=== PATIENT | male | born 1940 | race Caucasian/White ===

== ENCOUNTER 2019-08-30 11:58 | Inpatient (IN) | payer MEDICARE, OTHER ==
[~2019-08-30] VITALS: Ht 177.8 cm; Wt 93.0 kg
--- NOTE | 2019-08-30 12:16 | NUR ---
[id number], from home, rapid heart rate since friday, denies chest pain HR120 on scene, BS 128. VERY PLEASANT, NO ACUTE DISTRESS NOTED. SOME SOB AND WEAKNESS, DENIES DIZZINESS, N/V. SKIN WARM, DRY, INTACT. AOX4, AMB, TACHYCARDIC. NO OTHER MEDICAL COMPLAINTS AT THIS TIME. ON MONITOR AND READY FOR EVAL.
[2019-08-30] MEDS ORDERED: DILTIAZEM HCL 50 MG IV ONE (12:22)
[2019-08-30] MEDS ORDERED: IV NS 0.9% 1,000 ML BAG IV ONE ×2 (12:30→13:00)
[2019-08-30] MEDS ORDERED: DILTIAZEM HCL 50 MG IV IV ONE (12:30)
[2019-08-30 12:32] LABS: BASOPHILS # (AUTO) 0.1 /CMM (0.0-0.2); BASOPHILS % (AUTO) 0.4 % (0.0-2.0); HEMATOCRIT 51 % (39-51); HEMOGLOBIN 17.2 g/dL (13.5-17.5); LYMPHOCYTES # (AUTO) 0.8 /CMM (0.8-4.8); LYMPHOCYTES % (AUTO) 2.6 % (20.0-44.0); MEAN CORPUSCULAR HGB CONC 34 g/dl (31.0-36.0); MEAN CORPUSCULAR VOLUME 98 fL (80-96); MONOCYTES # (AUTO) 2.7 /CMM (0.1-1.30); MONOCYTES % (AUTO) 8.4 % (2.0-12.0); NEUTROPHILS # (AUTO) 28.8 /CMM (1.8-8.9); NEUTROPHILS % (AUTO) 88.6 % (43.0-81.0); PLATELET COUNT (AUTO) 182 /CMM (150-450); RED BLOOD CELL COUNT(AUTO) 5.21 MIL/uL (4.5-6.0)
[2019-08-30 12:34] LABS: WHITE BLOOD COUNT (AUTO) 32.5 K/uL (4.3-11.0)
[2019-08-30 12:40] LABS: CALCIUM, SERUM 11.1 mg/dL (8.5-10.1); CARBON DIOXIDE 25 mmol/L (21-32); CHLORIDE 99 mmol/L (98-107); CREATININE 1.7 mg/dL (0.6-1.3); GLUCOSE 131 mg/dL (74-106); POTASSIUM 4.7 mmol/L (3.5-5.1); SODIUM SERUM 134 mmol/L (136-145); UREA NITROGEN, BLOOD 32 mg/dL (7-18)
[2019-08-30 12:46] LABS: ALANINE AMINOTRANSFERASE 15 U/L (12-78); ALBUMIN 2.6 g/dL (3.4-5.0); ALKALINE PHOSPHATASE 79 U/L (46-116); ASPARTATE AMINOTRANSFERASE 29 U/L (15-37); BILIRUBIN,DIRECT 0.3 mg/dL (0.0-0.2); BILIRUBIN,TOTAL 1.1 mg/dL (0.2-1.0); TOTAL PROTEIN, SERUM 7.4 g/dL (6.4-8.2)
--- NOTE | 2019-08-30 12:46 | NUR ---
CALLED NURSING SUP FOR TELE BED. WILL CALL BACK.
[2019-08-30] MEDS ORDERED: CEFTRIAXONE 1GM BAG (ER ONLY) 1 GM/50 ML PIGGYBACK IV ONE (13:00)
[2019-08-30] MEDS ORDERED: CEFTRIAXONE 1GM BAG (ER ONLY) 50 ML IV ONE (13:03)
[2019-08-30] MEDS ORDERED: CHOL1POW MC (13:19)
[2019-08-30] MEDS ORDERED: OMEP20TA5 PO (13:19)
[2019-08-30] MEDS ORDERED: WARF7.5T23 PO (13:19)
[2019-08-30] MEDS ORDERED: OMEG-166 PO (13:19)
[2019-08-30] MEDS ORDERED: SILD100T70 PO (13:19)
[2019-08-30] MEDS ORDERED: ERYT3.5O9 LEFTEYE (13:19)
[2019-08-30] MEDS ORDERED: MONT10TA22 PO (13:19)
[2019-08-30] MEDS ORDERED: PSYL0.525 PO (13:19)
[2019-08-30] MEDS ORDERED: TIOT18CA3 IH (13:19)
[2019-08-30] MEDS ORDERED: WARF-58 PO (13:19)
[2019-08-30] MEDS ORDERED: MULT-439 PO (13:19)
[2019-08-30] MEDS ORDERED: ALBU8.5H8 IH (13:19)
[2019-08-30] MEDS ORDERED: ATOR20TA PO (13:19)
[2019-08-30] MEDS ORDERED: ALLO300T2 PO (13:19)
[2019-08-30] MEDS ORDERED: LORA10TA7 PO (13:19)
[2019-08-30] MEDS ORDERED: LISI40TA4 PO (13:19)
--- NOTE | 2019-08-30 13:38 | NUR ---
BED ASSIGNMENT 112-1
--- NOTE | 2019-08-30 14:00 | NUR ---
CALLED TO GIVE REPORT, ACCEPTING NURSE ON BREAK
--- NOTE | 2019-08-30 14:18 | NUR ---
REPORT GIVEN FOR BED 101
--- NOTE | 2019-08-30 14:29 | NUR ---
PT [facility]
[2019-08-30 14:30] VITALS: BP 104/57
--- NOTE | 2019-08-30 15:26 | NUR ---
RN ADMITTING NOTE: PATIENT IS A 78 YEAR OLD MALE ADMITTED TO TELE FROM THE ER, PREVIOUSLY FROM HOME. PATIENT STATED THAT ON 08/28/2019, HE FELT HIS HEART RACING AND COULDN'T SLEEP. PATIENT IS ALERT X4, VERBAL, AMBULATORY WITH ASSIST. PATIENT IS ON RA, LUNGS CLEAR ON AUSCULTATION. NO SOB OR RESPIRATORY DISTRESS NOTED. NO C/O CHEST PAIN. PATIENT ON TELE MONITOR, UNCONTROLLED AFIB NOTED. IV SITE AT [facility] WITH 290G, PATENT, C/D/I. INVENTORY COMPLETE. MD NOTIFIED OF ADMISSION. CONTINENT, USES URINAL/ BATHROOM. SKIN INTACT. SAFETY MEASURES IMPLEMENTED. BED IN LOWEST POSITION, LOCKED, SIDE RAILS UP X2, CALL LIGHT WITHIN REACH.
[2019-08-30 16:00] VITALS: BP 100/68
[2019-08-30] MEDS ORDERED: ONDANSETRON HCL/PF 4 MG/2 ML VIAL IVP PRN (16:00)
[2019-08-30] MEDS ORDERED: Z GUARD REMEDY 2 OZ OINT TP PRN (16:00)
[2019-08-30] MEDS ORDERED: MAGNESIUM HYDROXIDE 30 ML UDC PO PRN (16:00)
[2019-08-30] MEDS ORDERED: ACETAMINOPHEN 325 MG TABLET PO PRN (16:00)
[2019-08-30] MEDS ORDERED: MAG HYDROX/AL HYDROX/SIMETH 30 ML UDC PO PRN (16:00)
[2019-08-30] MEDS ORDERED: HYDROCODONE/APAP 5/325MG 1 EACH TABLET PO PRN (16:00)
[2019-08-30] MEDS ORDERED: WARFARIN SODIUM 7.5 MG TABLET PO SCH (17:00)
[2019-08-30 17:04] LABS: LYMPHOCYTES % (MANUAL) 2 % (16-48); MONOCYTES % (MANUAL) 8 % (0-11.0); NEUTROPHILS % (MANUAL) 90 (42-76)
[2019-08-30] MEDS: IV NS 0.9% 1,000 ML IV PRN (17:29)
[2019-08-30] MEDS ORDERED: WARFARIN SODIUM 2.5 MG TABLET PO SCH ×2 (17:55→18:16)
[2019-08-30 18:47] LABS: APPEARANCE,URINE CLEAR (CLEAR); BILIRUBIN,URINE NEGATIVE (NEGATIVE); BLOOD, URINE NEGATIVE Ery/uL (NEGATIVE); COLOR,URINE YELLOW (YELLOW); KETONES,URINE NEGATIVE (NEGATIVE); LEUKOCYTE ESTERASE ,URINE NEGATIVE (NEGATIVE); NITRITE, URINE NEGATIVE (NEGATIVE); PH,URINE 5.5 (5.0-8.0); PROTEIN,URINE TRACE mg/dl (NEGATIVE); UGLUCOSE NEGATIVE (NEGATIVE); UROBILINOGEN,URINE 0.2 EU/dL (0.2)
[2019-08-30 18:54] LABS: RBC,URINE 0-2 /HPF (0-2); WBC,URINE 0-2 /HPF (0-3)
[2019-08-30 18:55] LABS: BACTERIA,URINE Few /HPF (None Seen); EOSINOPHIL,URINE None Seen; HYALINE CASTS, URINE Moderate /LPF (None Seen); SQUAMOUS EPITHELIAL CELL,UR Few /HPF (None Seen)
[2019-08-30] MEDS ORDERED: AMIODARONE 900 MG in IV D5W 482 ML IV PRN (19:00)
[2019-08-30] MEDS ORDERED: AMIODARONE 150 MG in IV D5W 100 ML IV ONE (19:00)
[2019-08-30] MEDS ORDERED: ALBUTEROL FS 2.5 MG/0.5 ML VIAL.NEB NEB PRN (19:30)
[2019-08-30] MEDS: IPRATROPIUM NEB FS 0.5 MG/2.5 ML AMPUL.NEB NEB SCH (19:38)
--- NOTE | 2019-08-30 19:42 | NUR ---
RN CLOSING NOTES PATIENT IS RESTING IN BED COMFORTABLY AT THIS TIME. HE IS ELEVATED, RECEIVED ORDERS FOR AMIODARONE BOLUS FOLLOWED BY DRIP. PT NEEDS HAVE BEEN MET, VITAL SIGNS ARE STABLE, NO ACUTE CHANGES OCCURRED THROUGHOUT THE SHIFT. SAFETY MEASURES HAVE BEEN IMPLEMENTED, CALL LIGHT IS WITHIN REACH, BED IS IN LOWEST AND LOCKED POSITION, SIDE RAILS UP X2, PT HAS BEEN ENDORSED TO NIGHTSHIFT RN FOR CONTINUITY OF CARE.
--- NOTE | 2019-08-30 19:50 | NUR ---
RN NOTES RECEIVED PATIENT AWAKE ALERT ORIENTED X4, VERBALLY RESPONSIVE. NO ACUTE RESPIRATORY DISTRESS ON ROOM AIR SATURATION 94%. AFEBRILE. STARTED AMIODARONE BOLUS AND AMIODARONE DRIP PROTOCOL ORDERED DUE TO AFIB W/RVR PER AM SHIFT. HR 114 AT THIS TIME. DENIES CHEST PAIN OR NAUSEA VOMITING. USED URINAL AND ABLE TO AMBULATE IN THE BATHROOM . REMINDED PATIENT TO PRESS CALL LIGHT FOR ASSISTANCE EVEN IF HE FEELS SHE CAN DO IT ON HER OWN. VERBALIZED UNDERSTANDING OF SAFETY. IV SITE ON LAC G 20 INTACT AND PATENT WTIH NS @ 125 ML/HR. AMIODARONE DRIP STARTED ORDERED. KEPT BED LOCKED AND IN LOWEST POSSIBLE POSITION. KEPT PT CLEAN AND DRY. WILL CONTINUE TO MONITOR.
[2019-08-30 20:00] VITALS: BP 120/67
[2019-08-30] MEDS: ATORVASTATIN 10 MG TABLET PO SCH (21:25)
[2019-08-31] VITALS (8 sets, daily range): BP systolic 109–133; BP diastolic 53–75
[2019-08-31] MEDS: IV NS 0.9% 1,000 ML IV PRN ×3 (02:00→16:52)
--- NOTE | 2019-08-31 02:00 | NUR ---
RN NOTES AMIODARONE DRIP CHANGE RATE TO 0.5 MCG/MIN.
[2019-08-31] MEDS: IPRATROPIUM NEB FS 0.5 MG/2.5 ML AMPUL.NEB NEB SCH ×4 (02:07→19:28)
[2019-08-31 06:26] LABS: BASOPHILS % (AUTO) 0.1 % (0.0-2.0); HEMATOCRIT 46 % (39-51); HEMOGLOBIN 15.6 g/dL (13.5-17.5); LYMPHOCYTES # (AUTO) 0.9 /CMM (0.8-4.8); LYMPHOCYTES % (AUTO) 3.1 % (20.0-44.0); MEAN CORPUSCULAR HGB CONC 34 g/dl (31.0-36.0); MEAN CORPUSCULAR VOLUME 98 fL (80-96); MONOCYTES # (AUTO) 2.2 /CMM (0.1-1.30); MONOCYTES % (AUTO) 7.5 % (2.0-12.0); NEUTROPHILS # (AUTO) 25.4 /CMM (1.8-8.9); NEUTROPHILS % (AUTO) 89.3 % (43.0-81.0); PLATELET COUNT (AUTO) 133 /CMM (150-450); RED BLOOD CELL COUNT(AUTO) 4.67 MIL/uL (4.5-6.0); WHITE BLOOD COUNT (AUTO) 28.5 K/uL (4.3-11.0)
--- NOTE | 2019-08-31 07:00 | NUR ---
RN NOTES PATIENT RESTED ON BED HAVING A HARD TIME SLEEPING AT NIGHT. WITH O2 2LPM VIA NC TOLERATED WELL. DENIES CHEST PAIN. AFEBRILE. VSS REMAINED AFIB UNCONTROLLED. SATURATION >92%. CONTINUE WITH AMIODARONE DRIP @ 0.5 MCG/MIN. IV SITE REMAINED INTACT AND PATENT. NO SIGNIFICANT CHANGES THROUGHOUT THE SHIFT. KEPT PT CLEAN AND DRY. ALL DUE MEDICINE ADMINISTERED ORDERED. ENDORSED CONTINUITY OF CARE TO AM NURSE.
[2019-08-31 07:08] LABS: CHOLESTEROL 87 mg/dL (<200); CREATINE KINASE, TOTAL 124 U/L (39-308); HDL CHOLESTEROL 25 mg/dL (40-60); LDL 41 mg/dL (0-99); THYROID STIMULATING HORMONE 0.351 uIU/mL (0.358-3.74); TRIGLYCERIDES 106 mg/dL (30-150)
[2019-08-31 07:09] LABS: ALANINE AMINOTRANSFERASE 17 U/L (12-78); ALBUMIN 2.1 g/dL (3.4-5.0); ALKALINE PHOSPHATASE 75 U/L (46-116); ASPARTATE AMINOTRANSFERASE 26 U/L (15-37); B-TYPE NATRIURETIC PEPTIDE 1158 PG/ML (0-125); BILIRUBIN,TOTAL 0.9 mg/dL (0.2-1.0); CARBON DIOXIDE 25 mmol/L (21-32); CHLORIDE 100 mmol/L (98-107); CREATININE 1.2 mg/dL (0.6-1.3); GLUCOSE 118 mg/dL (74-106); PHOSPHORUS 2.9 mg/dL (2.5-4.9); POTASSIUM 3.9 mmol/L (3.5-5.1); SODIUM SERUM 135 mmol/L (136-145); TOTAL PROTEIN, SERUM 6.4 g/dL (6.4-8.2); UREA NITROGEN, BLOOD 33 mg/dL (7-18)
--- NOTE | 2019-08-31 07:10 | NUR ---
VALERI RN OPENING NOTES RECEIVED REPORT FROM PM NURSE.PATIENT IN CHAIR.AWAKE ALERT ORIENTED X4. VERBALLY RESPONSIVE. NO SOB NO DISTRESS NOTED.ON O2 2L VIA NASAL CANULA. ON AMIODARONE DRIP ORDERED .ON TELE MONITOR AFIB W/RVR HR 80'S TO 110 AT THIS TIME. DENIES CHEST PAIN. URINAL AT BEDSIDE AND ABLE TO AMBULATE TO THE BATHROOM . REMINDED PATIENT TO PRESS CALL LIGHT FOR ASSISTANCE EVEN IF HE FEELS HE CAN DO IT ON HIS OWN. VERBALIZED UNDERSTANDING OF SAFETY. IV SITE ON LAC G 20 INTACT AND PATENT WITH NS @ 125 ML/HR. BED IS LOCKED AND IN LOWEST POSITION. CALL LIGHT IN REACH.WILL CONTINUE TO MONITOR.
[2019-08-31] MEDS: MONTELUKAST SODIUM (10MG) 10 MG TABLET PO SCH (08:14)
[2019-08-31] MEDS: LISINOPRIL (20MG) 20 MG TABLET PO SCH (08:14)
[2019-08-31] MEDS: ALLOPURINOL 100 MG TABLET PO SCH (08:14)
[2019-08-31] MEDS: MULTIVITAMINS,THERAGRAN 1 UDTAB TABLET PO SCH (08:14)
[2019-08-31] MEDS ORDERED: TIOTROPIUM BROMIDE 6 CAP/BOX CAP.W.DEV IH SCH (09:00)
--- NOTE | 2019-08-31 11:17 | NUR ---
AMPOULE WASHING MACHINE OPERATOR NOTE SEEN BY ARIEL.GOT NEW ORDERS.D/C AMIODARONE INFUSION.GOT NEW ORDER FOR HIDA SCAN.TASHI FROM NUCLEAR MEDICINE TALKED TO THE PATIENT AND EXPLAINED PROCEDURE.PATIENT VERBALIZED UNDERSTANDING.SIGNED CONSENT,NPO.WILL CONTINUE TO MONITOR.
[2019-08-31] MEDS: METOPROLOL TARTRATE 50 MG TABLET PO SCH ×2 (11:26→18:01)
--- NOTE | 2019-08-31 11:59 | NUR ---
INSTRUMENT SHOP SUPERVISOR NOTE SEEN BY .UPDATED ABOUT PATIENT CONDITION WITH LABS.WITH BC RESULT GRAM POSITIVE COCCI.WILL WAIT FOR 2ND BLOOD CULTURE TOO.GOT NEW ORDER FOR ARTIFICIAL TEARS PRN FOR EYE DRYNESS.AWAITING FOR HIDA SCAN.WILL CONTINUE TO MONITOR.
--- NOTE | 2019-08-31 13:00 | NUR ---
REAL ESTATE CLOSING COORDINATOR NOTE PATIENT PICKED UP FOR HIDA SCAN IN STABLE CONDITION WITH TASHI FROM NUCLEAR MEDICINE.NO SOB NO DISTRESS NOTED.
--- NOTE | 2019-08-31 14:41 | NUR ---
TICKET AGENT NOTER PATIENT BACK FROM HIDA SCAN.PATIENT IN BED.AXOX4.NPO.AWAITING ANOTHER SCAN @1700.WILL CONTINUE TO MONITOR.
[2019-08-31] MEDS: CEFTRIAXONE 1 G in IV D5W 50 ML IV SCH (14:51)
[2019-08-31] MEDS ORDERED: WARFARIN SODIUM 5 MG TABLET PO SCH (17:00)
--- NOTE | 2019-08-31 17:34 | NUR ---
MS GRAPHIC ARTS INSTRUCTOR NOTE PATIENT D/C HOME WITH IN STABLE CONDITION.AXOX4.NO SOB NO DISTRESS NOTED.SIGNED ALL DISCHARGE PAPER WORK .VERBALIZED UNDERSTANDING OF DISCHARGE INSTRUCTIONS AND NEW PRESCRIPTION.TO F/U WITH IN 1 WEEK.TOOK ALL BELONGINGS.IV REMOVED PRESSURE DRESSING APPLIED.TOOK ALL DISCHARGE PAPER WORK AND NEW PRESCRIPTION.LEFT IN PRIVATE CAR WITH DARIN VILLAGRAN IN PRIVATE CAR.WATERPROOF COATING MACHINE TENDER WHEELED PATIENT OUT FROM UNIT TO CAR. Addendum: 08/31/19 at 1804 by BILL BURTON RN ERROR/WRONG ENTRY
--- NOTE | 2019-08-31 18:02 | NUR ---
BUILDING GUARD DEPUTY SHERIFF NOTE PATIENT'S INR IS 3.50. MADE AWARE.HOLD DOSE TODAY AND RECHECK INR TOMORROW.WILL CONTINUE TO MONITOR.PATIENT MADE AWARE.BACK FROM SECOND HIDA SCAN TEST.
[2019-08-31] MEDS: POLYVINYL ALCOHOL 15 ML BOTTLE EACHEYE PRN (18:52)
--- NOTE | 2019-08-31 19:28 | NUR ---
CHRISTIAN SCIENCE NURSE NOTE RESULT OF HIDA CAN RELAYED TO POLICY ISSUE CLERK ZENA.KEEP PATIENT NPO.CHANGE IVF TO D5 1/2 NS@75ML/HR.SURGICAL CONSULT WITH .ENDORSED TO PM NURSE FOR MADIE.
[2019-08-31] MEDS: ATORVASTATIN 10 MG TABLET PO SCH (21:34)
[2019-08-31] MEDS: IV D5/0.45 NACL 1,000 ML IV PRN (22:47)
[2019-09-01] VITALS: BP 107/73
[2019-09-01] MEDS: METOPROLOL TARTRATE 50 MG TABLET PO SCH ×4 (00:50→17:57)
[2019-09-01] MEDS: IPRATROPIUM NEB FS 0.5 MG/2.5 ML AMPUL.NEB NEB SCH ×4 (01:02→20:04)
--- NOTE | 2019-09-01 01:04 | NUR ---
RT NOTE PT REFUSED TX. NO SOB NOTED. WILL CONTINUE TO MONITOR
[2019-09-01] MEDS: ZOLPIDEM TARTRATE 5 MG TABLET PO PRN (01:11)
[2019-09-01 04:00] VITALS: BP_SYST 107; BP_SYST 132; BP_DIAS 73; BP_DIAS 75
[2019-09-01 07:13] LABS: BASOPHILS % (AUTO) 0.1 % (0.0-2.0); EOSINOPHILS % (AUTO) 0.1 % (0.0-6.0); HEMATOCRIT 44 % (39-51); HEMOGLOBIN 14.5 g/dL (13.5-17.5); MEAN CORPUSCULAR HGB CONC 33 g/dl (31.0-36.0); MEAN CORPUSCULAR VOLUME 99 fL (80-96); MONOCYTES # (AUTO) 2.6 /CMM (0.1-1.30); MONOCYTES % (AUTO) 10.4 % (2.0-12.0); NEUTROPHILS # (AUTO) 21.5 /CMM (1.8-8.9); NEUTROPHILS % (AUTO) 85.4 % (43.0-81.0); PLATELET COUNT (AUTO) 125 /CMM (150-450); RED BLOOD CELL COUNT(AUTO) 4.46 MIL/uL (4.5-6.0); WHITE BLOOD COUNT (AUTO) 25.2 K/uL (4.3-11.0)
[2019-09-01 07:28] LABS: ALBUMIN 2.1 g/dL (3.4-5.0); BILIRUBIN,TOTAL 0.6 mg/dL (0.2-1.0); CALCIUM, SERUM 9.8 mg/dL (8.5-10.1); CREATININE 1.1 mg/dL (0.6-1.3); MAGNESIUM 2.1 mg/dL (1.8-2.4); PHOSPHORUS 2.3 mg/dL (2.5-4.9); POTASSIUM 4.2 mmol/L (3.5-5.1); TOTAL PROTEIN, SERUM 6.3 g/dL (6.4-8.2)
--- NOTE | 2019-09-01 07:30 | NUR ---
RN NOTES RECEIVED PATIENT PACING AROUND THE ROOM, DRESSSED WITH OWN CLOTHES. ALERT AND ORIENTEDX4. WITH AUDIBLE SHORTNESS OF BREATH BUT SATING WELL AT 98% ON ROOM AIR. . PATIENT AFIB ON THE MONITOR WITH HR ON THE 90S. IV SITE ON THE R WRIST IN PLACE, SALINE LOCKED. DISCUSSED PLAN OF CARE WITH THE PATIENT ESPECIALLY THAT HE'S BEEN PLACED ON NPO BUT " HAS NOT SPOKE TO THE DR" HE CLAIMED. PATIENT ENCOURAGE TO CALL FOR HELP/ ASSISTANCE. CALL LIGHT PLACED WITHIN REACH. BED IN LOW AND LOCKED POSITION. WILL CONTINUE TO MONITOR PATIENT ACCORDINGLY Addendum: 09/01/19 at 1845 by IGGY RODRIGUEZ RN PATIENT REFUSED IVF AT THIS TIME
[2019-09-01 08:00] VITALS: BP 125/74
--- NOTE | 2019-09-01 08:00 | NUR ---
RN NOTES INFORMED DR. CASTRO THAT PATIENT IS REQUESTING TO SEE HIM TO TALK REGARDING THE PROPOSED PROCEDURE
[2019-09-01] MEDS: LISINOPRIL (20MG) 20 MG TABLET PO SCH (09:00)
[2019-09-01] MEDS: MULTIVITAMINS,THERAGRAN 1 UDTAB TABLET PO SCH (09:00)
[2019-09-01] MEDS: MONTELUKAST SODIUM (10MG) 10 MG TABLET PO SCH (09:00)
[2019-09-01] MEDS: ALLOPURINOL 100 MG TABLET PO SCH (09:00)
--- NOTE | 2019-09-01 10:50 | NUR ---
RN NOTES DR. CASTRO AT BEDSIDE ON DISCUSSION WITH THE PATIENT REGARDING PLANNED PROCEDURE. 1100: OBTAINED CONSENT FOR THE PROCEDURE FROM THE PATIENT
[2019-09-01 12:00] VITALS: BP 142/69
[2019-09-01] MEDS ORDERED: NEUTRA PHOS 1 POWD.PACKET PO ONE (12:30)
[2019-09-01] MEDS ORDERED: PHYTONADIONE INJ 10 MG/1 ML AMPUL SQ ONE (13:00)
[2019-09-01] MEDS: CEFTRIAXONE 1 G in IV D5W 50 ML IV SCH (14:57)
[2019-09-01 16:00] VITALS: BP 135/76
[2019-09-01 20:00] VITALS: BP 112/69
[2019-09-02] VITALS (7 sets, daily range): BP systolic 95–128; BP diastolic 47–75
[2019-09-02] MEDS: IPRATROPIUM NEB FS 0.5 MG/2.5 ML AMPUL.NEB NEB SCH ×4 (01:12→20:09)
[2019-09-02] MEDS: ZOLPIDEM TARTRATE 5 MG TABLET PO PRN ×2 (01:27→22:15)
--- NOTE | 2019-09-02 02:00 | NUR ---
RN NOTES PATIENT IS A/OX4 IN THE BED, STABLE,PATIENT REPORT GIVEN TO RN ADA DECORATING INSTRUCTOR.
--- NOTE | 2019-09-02 02:20 | NUR ---
TELE/RN NOTES: RECEIVED REPORT FROM GEGE MCMILLAN FOR CONTINUITY OF CARE. RECEIVED PATIENT IN STABLE CONDITION, SLEEPING IN BED CURRENTLY. IN NO DISTRESS. NO SOB NOTED. WILL CONTINUE MONITORING ACCORDINGLY.
[2019-09-02 04:33] LABS: BASOPHILS # (AUTO) 0.1 /CMM (0.0-0.2); BASOPHILS % (AUTO) 0.3 % (0.0-2.0); EOSINOPHILS % (AUTO) 0.3 % (0.0-6.0); HEMATOCRIT 43 % (39-51); HEMOGLOBIN 14.1 g/dL (13.5-17.5); LYMPHOCYTES # (AUTO) 1.3 /CMM (0.8-4.8); LYMPHOCYTES % (AUTO) 4.7 % (20.0-44.0); MEAN CORPUSCULAR HGB CONC 33 g/dl (31.0-36.0); MEAN CORPUSCULAR VOLUME 98 fL (80-96); MONOCYTES # (AUTO) 3.7 /CMM (0.1-1.30); MONOCYTES % (AUTO) 13.5 % (2.0-12.0); NEUTROPHILS % (AUTO) 81.2 % (43.0-81.0); PLATELET COUNT (AUTO) 125 /CMM (150-450); RED BLOOD CELL COUNT(AUTO) 4.33 MIL/uL (4.5-6.0); WHITE BLOOD COUNT (AUTO) 27.2 K/uL (4.3-11.0)
[2019-09-02 04:46] LABS: CALCIUM, SERUM 9.1 mg/dL (8.5-10.1); CREATININE 0.8 mg/dL (0.6-1.3); PHOSPHORUS 2.8 mg/dL (2.5-4.9)
[2019-09-02] MEDS: METOPROLOL TARTRATE 50 MG TABLET PO SCH ×4 (05:09→17:54)
--- NOTE | 2019-09-02 06:25 | NUR ---
TELE/RN CLOSING NOTES: PATIENT IS AWAKE, SITTING THE CHAIR. A/OX4. STABLE, VERBALLY RESPONSIVE AND ABLE TO MAKE NEEDS KNOWN. AMBULATORY WITH UNSTEADY GAIT. INFORMED PATIENT TO CALL FOR ASSISTANCE WHEN GETTING UP. NO SOB NOTED, NO S/S OF ACUTE DISTRESS NOTED. BREATHING EVEN AND UNLABORED. NO COMPLAINS OF PAIN AT THIS TIME. MAINTAIN NPO STATUS STARTING MIDNIGHT FOR LAP FRANKIE PROCEDURE IN THE MORNING. INR OF 2.[address] CASTRO ABOUT LEVEL. IV SITE IS IN THE R HAND #22G INTACT, PATENT AND FLUSHING WELL. ALL CONSENTS FOR PROCEDURE SIGNED, WELL THE PRE OP CHECKLIST. SAFETY MEASURES KEPT IN PLACE. CALL LIGHT WITHIN REACH WILL ENDORSE TO MORNING NURSE FOR MADIE.
--- NOTE | 2019-09-02 06:26 | NUR ---
TELE/RN CLOSING NOTES: PATIENT IS AWAKE, SITTING THE CHAIR. A/OX4. STABLE, VERBALLY RESPONSIVE AND ABLE TO MAKE NEEDS KNOWN. AMBULATORY WITH UNSTEADY GAIT. INFORMED PATIENT TO CALL FOR ASSISTANCE WHEN GETTING UP. NO SOB NOTED, NO S/S OF ACUTE DISTRESS NOTED. BREATHING EVEN AND UNLABORED. NO COMPLAINS OF PAIN AT THIS TIME. ON TELE MONITORING WITH READING OF A FIB CONTROLLED WITH HR ON THE 80S. MAINTAIN NPO STATUS STARTING MIDNIGHT FOR LAP FRANKIE PROCEDURE IN THE MORNING. INR OF 2.[address] CASTRO ABOUT LEVEL. IV SITE IS IN THE R HAND #22G INTACT, PATENT AND FLUSHING WELL. ALL CONSENTS FOR PROCEDURE SIGNED, WELL THE PRE OP CHECKLIST. SAFETY MEASURES KEPT IN PLACE. CALL LIGHT WITHIN REACH WILL ENDORSE TO MORNING NURSE FOR MADIE.
--- NOTE | 2019-09-02 06:40 | NUR ---
TELE/RN NOTES: CALLED DR. CASTRO REGARDING INR LEVEL OF 2.72. PER MD "CANCEL THE PROCEDURE AND WE'LL CONTINUE WHEN THE LEVELS ARE WITHIN NORMAL RANGE. PUT THE PATIENT ON CLEAR LIQUIDS, AND ORDER 10MG VITAMIN K SUB Q ONCE. REPEAT INR LEVELS AT 2PM." ORDERS NOTED AND CARRIED OUT. WILL ENDORSE TO DAY SHIFT FOR MADIE.
[2019-09-02] MEDS ORDERED: PHYTONADIONE INJ 10 MG/1 ML AMPUL SQ ONE (08:00)
[2019-09-02 08:09] LABS: *SPE A/G RATIO 0.8 (0.7-1.7); *SPE ALBUMIN 2.6 g/dL (2.9-4.4); *SPE ALPHA-1-GLOBULIN 0.5 g/dL (0.0-0.4); *SPE BETA GLOBULIN 0.9 g/dL (0.7-1.3); *SPE GLOBULIN, TOTAL 3.1 g/dL (2.2-3.9); *SPE M-SPIKE 0.1 g/dL (Not Observed); *SPEGAMMA GLOBULIN 0.6 g/dL (0.4-1.8)
[2019-09-02] MEDS: MONTELUKAST SODIUM (10MG) 10 MG TABLET PO SCH (08:48)
[2019-09-02] MEDS: MULTIVITAMINS,THERAGRAN 1 UDTAB TABLET PO SCH (08:48)
[2019-09-02] MEDS: ALLOPURINOL 100 MG TABLET PO SCH (08:48)
[2019-09-02] MEDS: LISINOPRIL (20MG) 20 MG TABLET PO SCH (09:00)
[2019-09-02] MEDS ORDERED: PIPERACILLIN /TAZOBACTAM 3.375 G in IV D5W 50 ML IV ONE (12:00)
[2019-09-02] MEDS: PIPERACILLIN /TAZOBACTAM 3.375 G in IV D5W 100 ML IV SCH (13:10)
--- NOTE | 2019-09-02 19:15 | NUR ---
RN OPENING NOTE RECEIVED PATIENT IN BED RESTING WITH HOB ELEVATED. A&O X4. ABLE TO MAKE NEEDS KNOWN. BREATHING EVEN AND NON LABORED. NO SOB NOTED. IN NO APPARENT DISTRESS NOTED AT THIS TIME. BED IS LOWERED TO LOW POSITION AND LOCKED FOR SAFETY. CALL LIGHT IS WITHIN REACH. WILL CONTINUE TO MONITOR.
[2019-09-03] VITALS (13 sets, daily range): BP systolic 104–139; BP diastolic 55–78
--- NOTE | 2019-09-03 00:41 | NUR ---
e learning manager: received report from sweetie leiva. pt sleeping, appears calm and comfortable. currently npo for sx in am. consent signed by pt. safety precautions for fall engaged, call light in reach, will continue monitoring pt.
--- NOTE | 2019-09-03 00:45 | NUR ---
RN NOTE PATIENT IS STABLE AT THIS TIME. NO SIGNIFICANT CHANGES NOTED. PATIENT IS NPO AFTER MIDNIGHT. ENDORSED TO GEGE RAMIREZ FOR CONTINUATION OF CARE.
--- NOTE | 2019-09-03 00:50 | NUR ---
RN NOTES: PER DR CASTRO'S NOTE DATED 09/02/2019, PT SUPPOSED TO BE FOR LAP FRANKIE YESTERDAY BUT [facility] CANCELLED DUE TO PT INR LEVEL. PER NOTE, HE CONSULTED RADIOLOGY DR BISHOP, PLAN FOR POSSIBLE CT GUIDED DRAIN IN THE GALL BLADDER, BUT NEEDING INR LEVEL TO BE THERAPEUTIC INR <1.5, OF RIGHT NOW, BASED ON SCHEDULE MASTERLIST FOR SURGERY, PT'S NAME WAS NOT WRITTEN/NO SCHED FOR SX, PER ULTRASOUND TECHNOL RECOMMENDATION TO KEEP NPO POSSIBLE LAP FRANKIE VS CT GUIDED IN AM.
--- NOTE | 2019-09-03 01:00 | NUR ---
RN NOTES: PT AWAKE, DISCUSSED POSSIBILITY OF SURGERY IN AM, AND THAT PT NEEDS TO BE KEPT NPO, PT AGREE, WATER PITCHER REMOVED. ACCORDING TO PT, LAST MEAL INTAKE WAS DINNER TIME, AND LAST FLUID/WATER INTAKE WAS BEFORE MIDNIGHT. PT REFUSED IVF, EDUCATION PROVIDED TO PT.
[2019-09-03] MEDS: IPRATROPIUM NEB FS 0.5 MG/2.5 ML AMPUL.NEB NEB SCH ×4 (01:38→19:27)
[2019-09-03] MEDS: PIPERACILLIN /TAZOBACTAM 3.375 G in IV D5W 100 ML IV SCH ×2 (04:40→17:05)
--- NOTE | 2019-09-03 05:44 | NUR ---
RN NOTES: PT'S WRISTWATCH, DENTURES, CELLPHONE, RAIL EQUIPMENT OPERATOR, WALLET PLACED ON ZIPLOCK WITH PT'S NAME/DIRECTOR OF PROVIDER RELATIONS IT. PT REFUSED KEEPING THOSE ON SAFE. PURSE TOGETHER WITH OTHER VALUABLES WERE KEPT IN BED SIDE DRAWER.
[2019-09-03] MEDS: METOPROLOL TARTRATE 50 MG TABLET PO SCH ×5 (06:00→23:45)
[2019-09-03 06:21] LABS: BASOPHILS # (AUTO) 0.1 /CMM (0.0-0.2); BASOPHILS % (AUTO) 0.2 % (0.0-2.0); EOSINOPHILS % (AUTO) 0.8 % (0.0-6.0); HEMATOCRIT 42 % (39-51); HEMOGLOBIN 13.6 g/dL (13.5-17.5); LYMPHOCYTES # (AUTO) 1.3 /CMM (0.8-4.8); LYMPHOCYTES % (AUTO) 5.1 % (20.0-44.0); MEAN CORPUSCULAR HGB CONC 33 g/dl (31.0-36.0); MEAN CORPUSCULAR VOLUME 98 fL (80-96); MONOCYTES # (AUTO) 3.6 /CMM (0.1-1.30); MONOCYTES % (AUTO) 13.8 % (2.0-12.0); NEUTROPHILS # (AUTO) 20.8 /CMM (1.8-8.9); NEUTROPHILS % (AUTO) 80.1 % (43.0-81.0); PLATELET COUNT (AUTO) 184 /CMM (150-450); RED BLOOD CELL COUNT(AUTO) 4.26 MIL/uL (4.5-6.0)
--- NOTE | 2019-09-03 06:30 | NUR ---
end of shift report: pt remains npo for possible sx today, lap bryce vs ct guided drain of gallbladder. am labs drawn. new iv access secured, left wrist g 20 currently infusing with zosyn iv atb extended infusion. no s/s of iv infiltration noted. lopressor held per clinical judgment due to pt's decreased blood pressure. consent for surgery signed by pt, checklist completed. pt remains a/o x3 on ra, stable, spo2 95%, denies any pain or discomfort. hourly rounding performed. needs attended. safety precautions for fall remains engaged, call light in reach, will endorse to day rn for continuity of care.
[2019-09-03 06:41] LABS: CALCIUM, SERUM 9.1 mg/dL (8.5-10.1); CREATININE 0.9 mg/dL (0.6-1.3); POTASSIUM 3.6 mmol/L (3.5-5.1)
[2019-09-03] MEDS: MULTIVITAMINS,THERAGRAN 1 UDTAB TABLET PO SCH (09:00)
[2019-09-03] MEDS: MONTELUKAST SODIUM (10MG) 10 MG TABLET PO SCH (09:00)
[2019-09-03] MEDS: LISINOPRIL (20MG) 20 MG TABLET PO SCH (09:00)
[2019-09-03] MEDS: ALLOPURINOL 100 MG TABLET PO SCH (09:00)
[2019-09-03] MEDS: IV D5/0.45 NACL 1,000 ML IV PRN (10:48)
--- NOTE | 2019-09-03 14:30 | NUR ---
ICU/RN/CT PT TRANSFER FROM MS UNIT TO CT SCAN FOR CT GUIDED DRAIN IN THE GALLBLADDER.PT IS AWAKE ,ALERT .PLACED ON MONITOR A-FIB HR 80-100 BPM.BP STABLE.SEE THE MODERATE SEDATION RECORD.AFEBRILE.ON 2L N/C ,SAT O2-100%. NO PAIN REPORTED AT THIS TIME.
[2019-09-03] MEDS ORDERED: FENTANYL PF 250MCG/5ML AMPUL IV ONE (15:00)
[2019-09-03] MEDS ORDERED: MIDAZOLAM HCL 5MG/ML VIAL 25 MG/5 ML VIAL IV ONE (15:00)
[2019-09-03] MEDS ORDERED: NALOXONE PREFILLED SYRINGE 2 MG/2 ML SYRINGE IV ONE (15:00)
[2019-09-03] MEDS ORDERED: IV NS 0.9% 250 ML IV ONE (15:05)
--- NOTE | 2019-09-03 16:05 | NUR ---
ICU/RN/CT FENTANYL 25 MCG IV PUSH GIVEN ORDERED.
--- NOTE | 2019-09-03 16:30 | NUR ---
ICU/RN/CT RIGHT SIDE GALLBLADDER DRAIN BACK PLACED BY .PT TRANSFERRED BACK TO THE ROOM 101 IN STABLE CONDITION.V/S STABLE AFEBRILE.PT TOLERATED PROCEDURE WELL ,NO S/S OF BLEEDING NOTED.REPORT GIVEN TO DIGNA/RN.
--- NOTE | 2019-09-03 17:00 | NUR ---
RN NOTE PT STABLE, VS STABLE, NO CO PAIN OR SOB. PT ASKING FOR FOOD. PER DR PHILIPPE WE CAN GIVE HIM CLEAR LIQUID DIET, AND TO HOLD COUMADIN TODAY. WILL FOLLOW THROUGH ORDERS AND WILL CONTINUE TO MONITOR.
--- NOTE | 2019-09-03 20:11 | NUR ---
MS/RN OPENING NOTE RECEIVED PATIENT A/O X4 YAKUT SPEAKER SITTING IN CHAIR CURRENTLY WITH NO SIGN OF ANY DISTRESS. PATIENT IS ON ROOM AIR CURRENTLY WITH NO SIGNS OF ANY SOB. PATIENT HAS AN IV ON LT WRIST WITH GAUG #20 PATENT WITH NO SIGN OF INFILTRATION CURRENTLY RUNNING MERREM. PATIENT AMBULATES WELL WITH NO SIGN OF IMBALANCE. PATIENT HAS A RT SIDE UPPER ABDOMENT DRAINAGE WITH NO SIGN OF ANY LEAKAGE. PATIENT DOES NOT COMPLAIN OF ANY PAIN AT THE MOMENT. PATIENT CONTINUES TO SIT IN CHAIR. ALL SAFETY PRECAUTIONS HAVE BEEN APPLIED. CALL LIGHT WITHIN REACH. WILL CONTINUE TO MONITOR PATIENT THROUGHOUT SHIFT.
--- NOTE | 2019-09-03 23:45 | NUR ---
MS/RN NOTE HELD SCHEDULED METROPOLOL AT 0000. PATIENT BP IS NOT WITHIN RANGE FOR ADMINISTRATION OF MEDICATION. BP IS 104/57 WITH A HR OF 85. PER MEDICATION PROTOCOL HOLD MEDICATION FOR SBP <105. WILL CONTINUE TO MONITOR PATIENT.
[2019-09-04] MEDS: PIPERACILLIN /TAZOBACTAM 3.375 G in IV D5W 100 ML IV SCH ×3 (00:15→17:22)
[2019-09-04] MEDS: IPRATROPIUM NEB FS 0.5 MG/2.5 ML AMPUL.NEB NEB SCH ×4 (01:30→19:43)
[2019-09-04 04:00] VITALS: BP 117/58
[2019-09-04] MEDS: METOPROLOL TARTRATE 50 MG TABLET PO SCH ×3 (05:59→17:22)
--- NOTE | 2019-09-04 05:59 | NUR ---
MS/RN NOTE HELD PATIENT SCHEDULED METROPOLOL AT 0600. PATIENT BP IS 103/64. PER MEDICATION PROTOCOL HOLD IF SBP IS <105. WILL CONTINUE TO MONITOR PATIENT.
--- NOTE | 2019-09-04 07:16 | NUR ---
MS/RN CLOSING PATIENT IN BED WITH NO SIGN OF ANY DISTRESS. PATIENT IS ON ROOM AIR WITH NO SIGN OF ANY SOB. PATIENT DOES NOT COMPLAIN OF ANY PAIN. DRAINAGE ON THE RIGHT UPPER ABDOMEN IS DRANING WELL. IV ACCESS ON THE LT WRIST #20 IS PATENT WITH NO SIGN OF ANY INFILTRATION. ALL NEEDS HAVE BEEN MET. ENDORSED PATIENT TO MORNING SHIFT NURSE FOR MADIE.
[2019-09-04 07:17] LABS: BASOPHILS # (AUTO) 0.1 /CMM (0.0-0.2); BASOPHILS % (AUTO) 0.2 % (0.0-2.0); EOSINOPHILS % (AUTO) 1.2 % (0.0-6.0); HEMATOCRIT 42 % (39-51); HEMOGLOBIN 13.8 g/dL (13.5-17.5); LYMPHOCYTES # (AUTO) 2.1 /CMM (0.8-4.8); LYMPHOCYTES % (AUTO) 9.9 % (20.0-44.0); MEAN CORPUSCULAR HGB CONC 33 g/dl (31.0-36.0); MEAN CORPUSCULAR VOLUME 98 fL (80-96); MONOCYTES % (AUTO) 14.3 % (2.0-12.0); NEUTROPHILS # (AUTO) 15.7 /CMM (1.8-8.9); NEUTROPHILS % (AUTO) 74.4 % (43.0-81.0); PLATELET COUNT (AUTO) 246 /CMM (150-450); RED BLOOD CELL COUNT(AUTO) 4.29 MIL/uL (4.5-6.0); WHITE BLOOD COUNT (AUTO) 21.2 K/uL (4.3-11.0)
--- NOTE | 2019-09-04 07:40 | NUR ---
MS RN OPENING NOTE PATIENT IN BED RESTING COMFORTABLY. PATIENT IN NO ACUTE DISTRESS. NO SOB NOTED. PATIENT BREATHING IS EVEN AND UNLABORED. RIGHT UPPER ABDOMEN DRAIN PATENT AND INTACT. SAFETY PRECAUTIONS IN PLACE. PATIENT BED IS LOCKED AND IN LOWEST POSITION. CALL LIGHT WITHIN REACH. WILL CONTINUE TO MONITOR.
[2019-09-04 07:45] LABS: CALCIUM, SERUM 9.1 mg/dL (8.5-10.1); CREATININE 0.8 mg/dL (0.6-1.3); POTASSIUM 3.7 mmol/L (3.5-5.1)
[2019-09-04 08:00] VITALS: BP 129/75
--- NOTE | 2019-09-04 08:48 | NUR ---
MS RN NOTE SEEN AND EVALUATED BY DR. PHILIPPE. PATIENT WAS ON COUMADIN WITH INR, PREVIOUSLY DISCONTINUED. PER MD KEEP MEDICATION DISCONTINUED AT THIS TIME.
[2019-09-04] MEDS: MULTIVITAMINS,THERAGRAN 1 UDTAB TABLET PO SCH (09:21)
[2019-09-04] MEDS: ALLOPURINOL 100 MG TABLET PO SCH (09:21)
[2019-09-04] MEDS: LISINOPRIL (20MG) 20 MG TABLET PO SCH (09:21)
[2019-09-04] MEDS: MONTELUKAST SODIUM (10MG) 10 MG TABLET PO SCH (09:21)
--- NOTE | 2019-09-04 09:45 | NUR ---
MS RN NOTE PER DR. PHILIPPE FOR INCENTIVE SPIROMETER AND KEEP AT BEDSIDE. EDUCATED PATIENT IMPORTANCE AND USE OF INCENTIVE SPIROMETER.
[2019-09-04 12:00] VITALS: BP 118/60
[2019-09-04 16:00] VITALS: BP 114/74
[2019-09-04 16:07] VITALS: BP 114/74
--- NOTE | 2019-09-04 16:25 | NUR ---
MS RN NOTE INR LAB RESULTED WNL TODAY. PER DR. PHILIPPE NO ORDER FOR COUMADIN AT THIS TIME.
--- NOTE | 2019-09-04 18:28 | NUR ---
MS RN CLOSING NOTE PATIENT IN BED RESTING COMFORTABLY. PATIENT IN NO ACUTE DISTRESS. NO SOB NOTED. PATIENT BREATHING IS EVEN AND UNLABORED. PATIENT NEEDS AND CONCERNS ADDRESSED. RIGHT UPPER ABDOMINAL DRAIN PATENT AND INTACT. PATIENT KEPT CLEAN, DRY, AND COMFORTABLE THROUGHOUT SHIFT. PATIENT IN NO PAIN AT THIS TIME. PATIENT IV PATENT AND INTACT. PATIENT BED IS LOCKED AND IN LOWEST POSITION. CALL LIGHT WITHIN REACH. WILL ENDORSE CARE TO PM SHIFT FOR MADIE.
--- NOTE | 2019-09-04 19:32 | NUR ---
MS/RN OPENING NOTES RECEIVED PATIENT IN BED, ALERT, ORIENTED X4, ABLE TO VERBALIZE NEEDS, SKIN WARM TO TOUCH, RESPIRATIONS EVEN AND UNLABORED, DISCUSSED PLAN OF CARE AND ON IV ANTIBIOTIC BEING INFUSED, USING URINAL AND REQUIRE SUPERVISION FOR SAFETY. BED LOCKED, CALL LIGHTS WITHIN REACH. WILL MONITOR. DENIES PAIN.
[2019-09-04 20:00] VITALS: BP 109/72
[2019-09-04] MEDS: POLYVINYL ALCOHOL 15 ML BOTTLE EACHEYE PRN (20:27)
[2019-09-05] VITALS: BP 104/66
[2019-09-05 00:32] VITALS: BP 104/66
[2019-09-05] MEDS: IPRATROPIUM NEB FS 0.5 MG/2.5 ML AMPUL.NEB NEB SCH ×4 (01:20→19:37)
[2019-09-05 04:00] VITALS: BP_SYST 103; BP_SYST 104; BP_DIAS 55; BP_DIAS 66
[2019-09-05] MEDS: METOPROLOL TARTRATE 50 MG TABLET PO SCH ×5 (05:36→23:29)
--- NOTE | 2019-09-05 06:25 | NUR ---
101-1MS/RN CLOSING NOTES PATIENT ABLE TO SLEEP DURING THE NIGHT. ALERT, ORIENTED X3, ATTENDED TO ALL NEEDS MONITORED FOR ANY CHANGES IN BLOOD PRESSURE. BED LOCKED, CALL LIGHTS WITHIN REACH. IV ANTIBIOTIC BEING INFUSED, WILL ENDORSE TO AM RN FOR MADIE.
--- NOTE | 2019-09-05 07:43 | NUR ---
RECEIVED BEDSIDE SBAR FROM PM RN - SAFETY PRECAUTIONS IN PLACE- VITALS STABLE - CONCERNS IN REGARDS TO DISCHARGE, MEDICATIONS AND ADVANCED DIET - WILL COTINUE TO MONITOR REPORT AND RECORD
[2019-09-05 08:00] VITALS: BP 110/72
[2019-09-05] MEDS: MULTIVITAMINS,THERAGRAN 1 UDTAB TABLET PO SCH (08:48)
[2019-09-05] MEDS: LISINOPRIL (20MG) 20 MG TABLET PO SCH (08:48)
[2019-09-05] MEDS: PIPERACILLIN /TAZOBACTAM 3.375 G in IV D5W 100 ML IV SCH ×4 (08:48→16:34)
[2019-09-05] MEDS: ALLOPURINOL 100 MG TABLET PO SCH (08:48)
[2019-09-05] MEDS: MONTELUKAST SODIUM (10MG) 10 MG TABLET PO SCH (11:51)
[2019-09-05] MEDS: ENOXAPARIN SODIUM 100 MG/ML DISP.SYRIN SQ SCH ×2 (11:53→20:38)
[2019-09-05 12:07] LABS: BASOPHILS # (AUTO) 0.1 /CMM (0.0-0.2); BASOPHILS % (AUTO) 0.7 % (0.0-2.0); EOSINOPHILS % (AUTO) 1.4 % (0.0-6.0); HEMATOCRIT 46 % (39-51); HEMOGLOBIN 15.2 g/dL (13.5-17.5); LYMPHOCYTES # (AUTO) 2.1 /CMM (0.8-4.8); LYMPHOCYTES % (AUTO) 11.3 % (20.0-44.0); MEAN CORPUSCULAR HGB CONC 33 g/dl (31.0-36.0); MEAN CORPUSCULAR VOLUME 99 fL (80-96); MONOCYTES # (AUTO) 2.5 /CMM (0.1-1.30); NEUTROPHILS # (AUTO) 13.2 /CMM (1.8-8.9); NEUTROPHILS % (AUTO) 72.6 % (43.0-81.0); PLATELET COUNT (AUTO) 305 /CMM (150-450); WHITE BLOOD COUNT (AUTO) 18.2 K/uL (4.3-11.0)
[2019-09-05 12:31] LABS: CALCIUM, SERUM 9.5 mg/dL (8.5-10.1); CARBON DIOXIDE 28 mmol/L (21-32); CHLORIDE 104 mmol/L (98-107); CREATININE 0.8 mg/dL (0.6-1.3); GLUCOSE 119 mg/dL (74-106); POTASSIUM 3.9 mmol/L (3.5-5.1); SODIUM SERUM 139 mmol/L (136-145); UREA NITROGEN, BLOOD 11 mg/dL (7-18)
[2019-09-05 13:09] LABS: BAND % (MANUAL) 2 % (0.0-5.0); EOSINOPHILS % (MANUAL) 1 % (0-4); LYMPHOCYTES % (MANUAL) 14 % (16-48); MONOCYTES % (MANUAL) 9 % (0-11.0); NEUTROPHILS % (MANUAL) 74 (42-76)
--- NOTE | 2019-09-05 15:14 | NUR ---
followed up surgery teacher resource. -NO DISCHARGE- d/t elevated wbc, drain, abx and id consult completion
--- NOTE | 2019-09-05 15:24 | NUR ---
patient and family member made aware of the discharge being placed on hold
[2019-09-05 16:00] VITALS: BP 109/75
--- NOTE | 2019-09-05 19:17 | NUR ---
care endorsed to pm rn - safety precautions in place- will continue to monitor report and record
--- NOTE | 2019-09-05 19:20 | NUR ---
MS RN OPENING NOTES RECEIVED PATIENT FROM MORNING SHIFT, ALERT AND ORIENTED X 3. VERBALLY RESPONSIVE AND ABLE TO FOLLOW DIRECTIONS. BREATHING REGULAR AND UNLABORED ON ROOM AIR. LEFT WRIST G20 IV LINE PATENT AND INTACT, FLUSHING WELL WITH NO BLEEDING OR S/S OF INFILTRATION NOTED. RIGHT UPPER ABDOMEN DRAIN INTACT WITH NO OUTPUT SEEN AT THIS TIME. BODY ASSESSMENT DONE, SKIN REMAINED INTACT CLEAN AND DRY. NO COMPLAINTS OF PAIN/DISCOMFORT REPORTED OF NOW. BED LOW AND LOCKED ON SEMI FOWLERS POSITION. CALL LIGHT IN REACH. WILL CONTINUE TO MONITOR.
[2019-09-05 20:00] VITALS: BP 122/71
[2019-09-06] VITALS: BP 123/63
[2019-09-06] MEDS: PIPERACILLIN /TAZOBACTAM 3.375 G in IV D5W 100 ML IV SCH ×2 (01:07→08:08)
[2019-09-06] MEDS: IPRATROPIUM NEB FS 0.5 MG/2.5 ML AMPUL.NEB NEB SCH ×2 (01:53→07:32)
[2019-09-06 04:00] VITALS: BP 108/63
[2019-09-06] MEDS: METOPROLOL TARTRATE 50 MG TABLET PO SCH (05:47)
--- NOTE | 2019-09-06 06:20 | NUR ---
MS RN CLOSING NOTES PATIENT IN BED ALERT AND ORIENTED X 3. VERBALLY RESPONSIVE AND ABLE TO FOLLOW DIRECTIONS. BREATHING REGULAR AND UNLABORED ON ROOM AIR. LEFT WRIST G20 IV LINE PATENT AND FLUSHING WELL. NO COMPLAINTS OF PAIN/DISCOMFORT REPORTED THE WHOLE SHIFT. NO OUTPUT NOTED ON RIGHT ABDOMEN DRAIN. BED LOW AND LOCKED ON SEMI FOWLERS POSITION. CALL LIGHT IN REACH. WILL ENDORSE TO MORNING SHIFT FOR MADIE.
[2019-09-06 06:24] LABS: BASOPHILS # (AUTO) 0.1 /CMM (0.0-0.2); BASOPHILS % (AUTO) 0.5 % (0.0-2.0); EOSINOPHILS % (AUTO) 2.1 % (0.0-6.0); HEMATOCRIT 41 % (39-51); HEMOGLOBIN 13.6 g/dL (13.5-17.5); LYMPHOCYTES # (AUTO) 2.5 /CMM (0.8-4.8); LYMPHOCYTES % (AUTO) 16.3 % (20.0-44.0); MEAN CORPUSCULAR HGB CONC 33 g/dl (31.0-36.0); MEAN CORPUSCULAR VOLUME 98 fL (80-96); MONOCYTES # (AUTO) 1.9 /CMM (0.1-1.30); MONOCYTES % (AUTO) 12.7 % (2.0-12.0); NEUTROPHILS # (AUTO) 10.5 /CMM (1.8-8.9); NEUTROPHILS % (AUTO) 68.4 % (43.0-81.0); PLATELET COUNT (AUTO) 310 /CMM (150-450); WHITE BLOOD COUNT (AUTO) 15.3 K/uL (4.3-11.0)
[2019-09-06 06:40] LABS: CALCIUM, SERUM 8.7 mg/dL (8.5-10.1); CREATININE 0.9 mg/dL (0.6-1.3); POTASSIUM 3.6 mmol/L (3.5-5.1)
[2019-09-06 08:00] VITALS: BP 121/73
[2019-09-06] MEDS: LISINOPRIL (20MG) 20 MG TABLET PO SCH (08:08)
[2019-09-06] MEDS: MULTIVITAMINS,THERAGRAN 1 UDTAB TABLET PO SCH (08:08)
[2019-09-06] MEDS: MONTELUKAST SODIUM (10MG) 10 MG TABLET PO SCH (08:08)
[2019-09-06] MEDS: ALLOPURINOL 100 MG TABLET PO SCH (08:08)
[2019-09-06] MEDS: ENOXAPARIN SODIUM 100 MG/ML DISP.SYRIN SQ SCH (08:09)
--- NOTE | 2019-09-06 09:00 | NUR ---
PATIENT STATES THAT HE WILL BE LEAVING AT 12N NO MATTER HAPPENS- EDUCATED THE PATIENT THAT IS CALLED AMA AND EDUCATED POSSIBLE NEGATIVE RESULTS IN REGARDS TO INSURANCE AND HEALTH CONSIDERING THE PATIENT STILL HAS A DRAIN AND NO RX FOR ABX. PATIENT STATES THE HE WILL LOCK HIMSELF IN THE HOUSE FOR A DAY TO REST AND IN ORDER NOT TO GET FURTHER IFX- EDUCATED THE PATIENT THAT MAY NOT BE THE BEST COURSE OF ACTION AND UNTIL WE CAN GET MEDICAL CLEARANCE IT WOULD BE ADVISED TO REMAIN FOR CARE- PATIENT STATES HE WILL LEAVE BY 12N - WILL CONTINUE TO MONITOR REPORT AND RECORD
--- NOTE | 2019-09-06 10:30 | NUR ---
reached out to ID, attending MD and Lath Tier - patient will be discharged- soon to follow- educated patient -
[2019-09-06] MEDS ORDERED: METR500T PO (10:38)
[2019-09-06] MEDS ORDERED: CIPR-262 PO (10:38)
--- NOTE | 2019-09-06 10:45 | NUR ---
PROVIDED EDUCATION ON PROCEDURE AND HOME CARE -FOR DRAIN
--- NOTE | 2019-09-06 11:07 | NUR ---
patietn resting in room - no complaints of pain- only concern is dc- received bedside sbar from pm rn - safety precautions in place- will continue to monitor report and record
[2019-09-06 12:00] VITALS: BP 109/66
--- NOTE | 2019-09-06 12:44 | NUR ---
patient has received instructions- verbalized understanding - piv removed- will escort patient off unit
--- NOTE | 2019-09-06 13:19 | NUR ---
DEVELOPER PROVER UPHOLSTERING EDUCATED TO ENDORSE HH TO CM AND DISCHARGE PATIENT - CM WILL FU-PATIENT ESCORTED OFF UNIT BY RN
[2019-09-07] MEDS ORDERED: RIVAROXABAN 10 MG TABLET PO SCH (17:00)
== END 2019-09-06 12:20 | disposition home or self-care (01) | DRG 871 ==
LOC: ER 12:00 → TELE1 13:58 → TELE-TD 20:04 → TELE1 08-31 12:40 → MEDSG1 09-02 11:03
PROVIDERS: ATTEND Hospitalist
PROC: 0F943ZZ Drainage of Gallbladder, Percutaneous Approach (ICD-10-PCS; principal; 2019-09-03)
DX: A41.9 Sepsis, unspecified organism (principal); E43 Unspecified severe protein-calorie malnutrition; N17.0 Acute kidney failure with tubular necrosis; J18.9 Pneumonia, unspecified organism; E87.2 Acidosis; K80.00 Calculus of gallbladder with acute cholecystitis without obstruction; D68.59 Other primary thrombophilia; D68.8 Other specified coagulation defects; E83.52 Hypercalcemia; E86.0 Dehydration; I12.9 Hypertensive chronic kidney disease with stage 1 through stage 4 chronic kidney disease, or unspecified chronic kidney disease; N18.9 Chronic kidney disease, unspecified; J44.9 Chronic obstructive pulmonary disease, unspecified; I48.91 Unspecified atrial fibrillation; Z79.01 Long term (current) use of anticoagulants; E78.5 Hyperlipidemia, unspecified; K21.9 Gastro-esophageal reflux disease without esophagitis; M10.9 Gout, unspecified; I13.10 Hypertensive heart and chronic kidney disease without heart failure, with stage 1 through stage 4 chronic kidney disease, or unspecified chronic kidney disease; Z87.891 Personal history of nicotine dependence; E86.1 Hypovolemia; Z85.828 Personal history of other malignant neoplasm of skin; K57.90 Diverticulosis of intestine, part unspecified, without perforation or abscess without bleeding; I70.8 Atherosclerosis of other arteries
CPT/HCPCS: 36415; 71045-TC; 75989; 75989-TC; 76705-TC; 76770-TC; 78226; 80048-TC; 80053-TC; 80061-TC; 80076-TC; 81000-TC; 82550-TC; 82570-TC; 82962-TC; 83605-TC; 83735-TC; 83880; 83970; 84100-TC; 84155; 84155-TC; 84165; 84300-TC; 84443-TC; 84484-TC; 85025-TC; 85610-TC; 85730-TC; 86850-TC; 87040-TC; 87081-TC; 87086-TC; 93307-TC; 94799-TC; 97116-TC; 97530-TC; 99082-TC; A9537; G0378; J0282; J0696; J1650; J2250; J2310; J2543; J3010; J3430; J3490; J7030; J7050; J7060